=== PATIENT | male | born 2000 | race Two or more races ===

== ENCOUNTER 2025-03-28 17:00 | Emergency (ER) | payer SELFPAY ==
[2025-03-28] MEDS ORDERED: Lidocaine 1% with EPINEPHrine 1:100,000 20 ML MDV INFILT ONE (17:01)
[2025-03-28] MEDS: Diphtheria/Tetanus Toxoids,Adult (Td) 0.5 ML SDV IM ONE (17:48)
== END 2025-03-28 17:53 | disposition home or self-care (01) ==
LOC: FB.ED 17:00
DX: S51.812A Laceration without foreign body of left forearm, initial encounter (principal); Z23 Encounter for immunization; W26.0XXA Contact with knife, initial encounter
CPT/HCPCS: 12032; 90471; 90714; 99282; J2004